=== PATIENT | male | born 1985 | race Caucasian/White ===

== ENCOUNTER 2020-06-20 07:46 | Emergency (ER) | payer OTHER ==
[2020-06-20] MEDS ORDERED: LORAZEPAM INJ 2 MG/1 ML VIAL IV ONE (09:15)
--- NOTE | 2020-06-20 09:28 | ER Document Report ---
Entered by CAMELIA BELL SCRIBE 06/20/20 0858 Acting as scribe for:AMBER MOLINA MD ED General - General Chief Complaint: Shortness Of Breath Stated Complaint: ANXIOUS,COUGH,SHORT OF BREATH Time Seen by Provider: 06/20/20 08:49 Primary Care Provider: QUETA SUN MD [Primary Care Provider] - Follow up in 3-5 days Mode of Arrival: Ambulatory Information source: Patient Notes: This 34 year old male patient with no significant past medical history presents to the ED today with complaints of an episode "where I feel like I'm having a heart attack, asthma attack, or panic attack." Patient states that last night it felt like something was "sitting on my chest and I couldn't get enough air in." He reports a similar episode x1 week ago in which he determined he was having a panic attack. He states that after the first episode, he felt great the morning after, but this morning "I woke up and I didn't feel fine." He states "I know I'm breathing because my lips aren't blue." He admits to "panicking a little bit" due to the news coverage about the pandemic. He also states "I can't get enough water in." He discloses a history of anxiety, especially when he was in the [facility], but he states that it got "a little bit" better once he got out and then worsened due to problems with his back. He notes seeing a therapist in the past, but he didn't think it was helping. Denies taking medications for anxiety and depression in the past. - Related Data Allergies/Adverse Reactions: No Known Allergies Allergy (Unverified 06/20/20 08:15) Home Medications: antibotic for sinus infection for past 2 days Past Medical History - General Information source: Patient - Social History Smoking Status: Former Smoker - quit x5 years ago Cigarette use (# per day): No Chew tobacco use (# tins/day): No Smoking Education Provided: No Frequency of alcohol use: Weekends Drug Abuse: None Lives with: Family Family History: Reviewed & Not Pertinent Psychiatric Medical History: Reports: Hx Anxiety Past Surgical History: Reports: Hx Orthopedic Surgery - Lumbar decompression in 2017 Review of Systems - Review of Systems Constitutional: No symptoms reported EENT: No symptoms reported Cardiovascular: No symptoms reported Respiratory: See HPI, Short of breath Gastrointestinal: No symptoms reported Genitourinary: No symptoms reported Male Genitourinary: No symptoms reported Musculoskeletal: No symptoms reported Skin: No symptoms reported Hematologic/Lymphatic: No symptoms reported Neurological/Psychological: See HPI, Anxiety -: Yes All other systems reviewed and negative Physical Exam - Vital signs Vitals: Temp Pulse Resp BP Pulse Ox 98.1 F 102 H 20 171/100 H 99 06/20/20 07:51 06/20/20 07:51 06/20/20 07:51 06/20/20 07:51 06/20/20 07:51 - General General appearance: Alert, Anxious - Patient is restless, sighing frequently, and using rapid speech - HEENT Head: Normocephalic, Atraumatic Eyes: Normal Extraocular movements intact: Yes Pupils: PERRL Neck: Normal, Supple - Respiratory Respiratory status: No respiratory distress Chest status: Nontender Breath sounds: Normal Chest palpation: Normal - Cardiovascular Rhythm: Regular Heart sounds: Normal auscultation Murmur: No - Abdominal Inspection: Normal Distension: No distension Bowel sounds: Normal Tenderness: Nontender - Abdomen soft Organomegaly: No organomegaly - Extremities General upper extremity: Normal inspection General lower extremity: Normal inspection. No: Edema - Neurological Neuro grossly intact: Yes Orientation: AAOx4 [place] Coma Scale Eye Opening: Spontaneous [place] Coma Scale Verbal: Oriented [place] Coma Scale Motor: Obeys Commands [place] Coma Scale Total: 15 - Psychological Associated symptoms: Anxious, Restlessness, Tearful - Skin Skin Temperature: Warm Skin Moisture: Dry Skin Color: Normal Course - Re-evaluation Re-evalutation: 06/20/20 10:09 The patient was evaluated during the global COVID-19 pandemic and that diagnosis was suspected/considered upon their initial presentation. Their evaluation, treatment and testing was consistent with current guidelines for patients who present with complaints or symptoms that may be related to COVID-19. 06/20/20 13:12 Patient is feeling much better and resting comfortably after the small dose of Ativan. Portable chest x-ray suggested bibasilar airspace disease, so a PA and lateral was done which confirmed patchy bibasilar airspace disease suspicious for viral pneumonitis. - Vital Signs Vital signs: Temp Pulse Resp BP Pulse Ox 98.1 F 98 16 148/94 H 100 06/20/20 07:51 06/20/20 13:38 06/20/20 13:38 06/20/20 13:38 06/20/20 13:38 - Laboratory Results Result Diagrams: 06/20/20 09:45 06/20/20 09:45 Laboratory Results Interpreted: 06/20/20 06/20/20 09:45 09:45 Hct 37.3 L MCHC 36.4 H Sodium 136.9 L Critical Laboratory Results Reviewed: No Critical Results - Radiology Results Radiology Results Interpreted: 06/20/20 10:08 Chest x-ray was read as patchy bibasilar airspace disease suspicious for viral pneumonitis. Critical Radiology Results Reviewed: No Critical Results - EKG Interpretation by Md EKG shows normal: Sinus rhythm, [place], Intervals, QRS Complexes, ST-T Waves Rate: Normal - 73 Rhythm: NSR Discharge - Discharge Clinical Impression: Viral pneumonitis, Anxiety about health Condition: Stable Disposition: HOME, SELF-CARE Instructions: COVID-19 Guidance for Persons Under Investigation Additional Instructions: Anxiety The physician feels that some of your health problems are being caused by anxiety. Anxiety affects your health in many ways. Anxiety alone can cause palpitations, sweats, chest pains, abdominal pains, shortness of breath, and headaches. It contributes to ulcer disease, high blood pressure, irritable bowel syndrome, and has been shown to cause flare-ups of many other diseases. Anxiety is not a simple disorder to treat. If the anxiety is due to recent life stresses, you may simply need time to "work through" the changes. If the anxiety is due to an underlying unhappiness with yourself or due to psychiatric disturbance, professional help will be needed. Your physician can refer you for further help if needed. Anti-anxiety medication is occasionally given if the stress is acute or if you are having trouble sleeping. Chronic or frequent use of these medications is not a good idea because the body becomes reliant on it, preventing you from dealing with life's normal stresses. Your chest x-ray is suspicious for a viral pneumonitis as we discussed. You may develop some upper respiratory tract infectious symptoms such as cough. If you do, then take something like Robitussin-DM to suppress the symptoms. Self isolate at home until you get the results of the Covid testing. Your history and physical suggests you have a significant amount of anxiety, particularly about health related issues. Take the medication as prescribed for anxiety if needed over the next few days. Follow-up with your primary care provider in the next few days to discuss your anxiety problems, as as you seem to indicate that the anxiety problems may be getting worse. RETURN TO THE EMERGENCY ROOM IF ANY NEW OR WORSENING SYMPTOMS. Prescriptions: Alprazolam [Xanax 0.25 mg Tablet] 0.25 mg PO Q6 PRN #10 tablet PRN Reason: Forms: Return to Work Referrals: QUETA SUN MD [Primary Care Provider] - Follow up in 3-5 days I personally performed the services described in the documentation, reviewed and edited the documentation which was dictated to the scribe in my presence, and it accurately records my words and actions.
--- NOTE | 2020-06-20 09:39 | RADIOLOGY REPORT (SQ) ---
EXAM DESCRIPTION: CHEST SINGLE VIEW IMAGES COMPLETED DATE/TIME: 06/20/2020 9:29 am REASON FOR STUDY: Short of breath COMPARISON: None. EXAM PARAMETERS: NUMBER OF VIEWS: One view. TECHNIQUE: Single frontal radiographic view of the chest acquired. RADIATION DOSE: NA LIMITATIONS: None. FINDINGS: LUNGS AND PLEURA: Subtle ill-defined patchy airspace disease in both lung bases. Upper ilya ng nguyễn are clear. No pneumothorax or effusion. MEDIASTINUM AND HILAR STRUCTURES: No masses. Contour normal. HEART AND VASCULAR STRUCTURES: Heart normal in size. Normal vasculature. BONES: No acute findings. HARDWARE: None in the chest. OTHER: No other significant finding. IMPRESSION: Patchy bibasilar airspace disease suspicious for viral pneumonitis. TECHNICAL DOCUMENTATION: JOB ID: [id number] 2010 [employer]- All Rights Reserved Reading location - IP/workstation name: [email or web address]
[2020-06-20 10:04] LABS: ABSOLUTE LYMPHOCYTES (AUTO) 1.4 10^3/uL (0.5-4.7); ABSOLUTE MONOCYTES (AUTO) 0.4 10^3/uL (0.1-1.4); BASOPHILS % (AUTO) 0.4 % (0-2); EOSINOPHILS % (AUTO) 0.4 % (0-6); HEMATOCRIT 37.3 % (37.9-51.0); HEMOGLOBIN 13.6 g/dL (13.5-17.0); LYMPHOCYTES % (AUTO) 23.1 % (13-45); MEAN CORPUSCULAR HEMOGLOBIN 30.7 pg (27.0-33.4); MEAN CORPUSCULAR HGB CONC 36.4 g/dL (32.0-36.0); MEAN CORPUSCULAR VOLUME 84 fl (80-97); MONOCYTES % (AUTO) 7.5 % (3-13); PLATELET COUNT 385 10^3/uL (150-450); RED BLOOD COUNT 4.43 10^6/uL (4.35-5.55); RED CELL DISTRIBUTION WIDTH 12.2 % (11.5-14.0); SEGMENTED NEUTROPHILS % (AUTO) 68.6 % (42-78); TOTAL CELLS COUNTED % (AUTO) 100 %; WHITE BLOOD COUNT 5.9 10^3/uL (4.0-10.5)
[2020-06-20 10:19] LABS: APPEARANCE,URINE CLEAR; BILIRUBIN,URINE NEGATIVE (NEGATIVE); COLOR,URINE STRAW; GLUCOSE, URINE NEGATIVE (NEGATIVE); KETONES,URINE NEGATIVE (NEGATIVE); LEUKOCYTE ESTERASE,URINE NEGATIVE (NEGATIVE); NITRITE,URINE NEGATIVE (NEGATIVE); PROTEIN,URINE NEGATIVE (NEGATIVE); URINE SPECIFIC GRAVITY 1.006; UROBILINOGEN,URINE NEGATIVE mg/dL (<2.0)
[2020-06-20 10:21] LABS: ALBUMIN 4.1 g/dL (3.5-5.0); ALKALINE PHOSPHATASE 68 U/L (38-126); ANION GAP 7 (5-19); ASPARTATE AMINO TRANSFERASE 28 U/L (17-59); BILIRUBIN,DIRECT 0.1 mg/dL (0.0-0.4); BILIRUBIN,TOTAL 0.6 mg/dL (0.2-1.3); BLOOD UREA NITROGEN 15 mg/dL (7-20); CALCIUM 9.7 mg/dL (8.4-10.2); CARBON DIOXIDE 27 mmol/L (22-30); CHLORIDE 103 mmol/L (98-107); CREATINE KINASE 116 U/L (55-170); GLUCOSE 108 mg/dL (75-110); POTASSIUM 4.3 mmol/L (3.6-5.0); TOTAL PROTEIN 7.3 g/dL (6.3-8.2)
[2020-06-20 10:26] LABS: VENOUS BLOOD BASE EXCESS -1.6 mmol/L; VENOUS BLOOD HCO3 23.4 mmol/L (20-32); VENOUS BLOOD PCO2 40.5 mmHg (35-63); VENOUS BLOOD PH 7.38 (7.30-7.42)
--- NOTE | 2020-06-20 11:59 | RADIOLOGY REPORT (SQ) ---
EXAM DESCRIPTION: CHEST 2 VIEWS IMAGES COMPLETED DATE/TIME: 06/20/2020 11:45 am REASON FOR STUDY: SOB,chest pressure,abnormal portable CXR COMPARISON: 06/20/2020 EXAM PARAMETERS: NUMBER OF VIEWS: two views TECHNIQUE: Digital Frontal and Lateral radiographic views of the chest acquired. RADIATION DOSE: NA LIMITATIONS: none FINDINGS: LUNGS AND PLEURA: Patchy patchy vague opacities in the mid-lower lung zones. Considerati ons for these findings include viral pneumonias including COVID, atypical infections, inflammatory/in fectious etiologies. No pneumothorax or pleural effusion. MEDIASTINUM AND HILAR STRUCTURES: No masses or contour abnormalities. HEART AND VASCULAR STRUCTURES: Heart normal size. No evidence for failure. BONES: No acute findings. HARDWARE: None in the chest. OTHER: No other significant finding. IMPRESSION: 1. Persistent patchy vague opacities in the lungs as on the prior examination performed earlier on the same date 06/20/2020. Considerations for these findings include viral pneumonias inc luding COVID, atypical infections, inflammatory/ infectious etiologies. TECHNICAL DOCUMENTATION: JOB ID: [id number] 2010 [employer]- All Rights Reserved Reading location - IP/workstation name: [email or web address]
--- NOTE | 2020-06-20 12:29 | EKG REPORT ---
SEVERITY:- BORDERLINE ECG - SINUS RHYTHM NONSPECIFIC ST-T CHANGES- INFERIOR LEADS : Confirmed by: Rome Yepez MD 20-Jun-2020 12:28:00
[2020-06-20 13:38] VITALS: BP 148/94
== END 2020-06-20 13:38 | disposition home or self-care (01) ==
LOC: ER 07:46
DX: U07.1 COVID-19 (principal); J12.82 Pneumonia due to coronavirus disease 2019; R06.02 Shortness of breath; F41.9 Anxiety disorder, unspecified; J32.9 Chronic sinusitis, unspecified; Z87.891 Personal history of nicotine dependence
CPT/HCPCS: 93005; 99285; 96374; 36415; 82550; 85025; 87635; 86140; 80053; 81001; 84484; 85379; 82803; 71046; 71045; 93010; J2060; C9803